=== PATIENT | female | born 1960 | race Caucasian/White ===

== ENCOUNTER 2017-09-09 11:40 | Day surgery (SDC) | payer OTHER ==
[2017-09-08 12:21] VITALS: BMI 31.6
[2017-09-09 12:20] LABS: INR 0.99 (0.82-1.09); PROTHROMBIN TIME (PATIENT) 11.2 SEC (9.98-11.88)
[2017-09-09 12:23] LABS: ACTIVATED PTT 29.2 SECONDS (26.9-34.4)
[2017-09-09] MEDS ORDERED: LIDOCAINE 1%/EPI 1:100000 (20 ML MULTI DOSE VIAL) ONE (13:06)
[2017-09-09] MEDS ORDERED: INDOCYANINE GREEN 25 MG/10 ML VIAL IVPUSH ONE (13:10)
[2017-09-09] MEDS ORDERED: ROCURONIUM BROMIDE 50 MG/5 ML VIAL ONE (13:54)
[2017-09-09] MEDS ORDERED: fentaNYL CITRATE 250 MCG/5 ML VIAL ONE (13:54)
[2017-09-09] MEDS ORDERED: MIDAZOLAM HCL 2 MG/2 ML SINGLE DOSE VIAL ONE (13:54)
[2017-09-09] MEDS ORDERED: PROPOFOL 20 ML ONE (13:54)
--- NOTE | 2017-09-09 14:26 | HP ---
History & Physical Update - History History: No Change - Physical Physical: No Change - Assessment Assessment: No Change - Plan Plan: No Change
[2017-09-09] MEDS ORDERED: CLINDAMYCIN 600 MG PREMIX BAG IVPB ONE (14:40)
[2017-09-09] MEDS ORDERED: CLINDAMYCIN PHOSPHATE 600 MG/4 ML VIAL ONE (14:48)
[2017-09-09] MEDS ORDERED: BUPIVACAINE HCL/PF 0.5% (5MG/ML) 10 ML VIAL ONE (15:14)
[2017-09-09] MEDS ORDERED: BUPIVACAINE HCL/PF 0.5% (5MG/ML) 10 ML VIAL IJ ONE (15:34)
[2017-09-09] MEDS ORDERED: DEXAMETHASONE SOD PHOSPHATE 4 MG/1 ML VIAL ONE (15:52)
[2017-09-09] MEDS ORDERED: NEOSTIGMINE METHYLSULFATE 0.5 MG/ML - 10 ML MDV ONE (15:52)
[2017-09-09] MEDS ORDERED: GLYCOPYRROLATE 0.2 MG/1 ML VIAL ONE (15:52)
[2017-09-09] MEDS ORDERED: ONDANSETRON 4 MG/2 ML VIAL IVPUSH PRN (16:06)
[2017-09-09] MEDS ORDERED: KETOROLAC TROMETHAMINE 30 MG/1 ML VIAL ONE (16:11)
[2017-09-09] MEDS ORDERED: METOCLOPRAMIDE HCL INJECTION 10 MG/2 ML VIAL IVPUSH PRN (16:37)
[2017-09-09] MEDS ORDERED: ONDANSETRON 4 MG/2 ML VIAL IVPB PRN (16:37)
[2017-09-09] MEDS ORDERED: morphine SULFATE 4 MG/ML VIAL IVPUSH PRN (16:37)
[2017-09-09] MEDS ORDERED: diphenhydrAMINE HCL 25 MG CAPSULE (FP) PO PRN (16:37)
[2017-09-09] MEDS ORDERED: ACETAMINOPHEN INJECTION 100 ML IVPB ONE (16:38)
[2017-09-09] MEDS ORDERED: oxyCODONE HCL 5 MG TABLET PO PRN (16:42)
[2017-09-09] MEDS ORDERED: ACETAMINOPHEN 325 MG TABLET (FP) PO SCH (16:45)
[2017-09-09] MEDS ORDERED: ACETAMINOPHEN 1000 MG/100 ML VIAL (NON FORMULARY) IVPB ONE ×2 (16:55→17:15)
[2017-09-09] MEDS: KETOROLAC TROMETHAMINE 30 MG/1 ML VIAL IVPUSH SCH ×2 (18:56→21:47)
[2017-09-09] MEDS: ACETAMINOPHEN 500 MG TABLET (FP) PO SCH (19:30)
[2017-09-10] MEDS: ACETAMINOPHEN 500 MG TABLET (FP) PO SCH ×3 (00:40→12:18)
[2017-09-10] MEDS: KETOROLAC TROMETHAMINE 30 MG/1 ML VIAL IVPUSH SCH ×3 (03:00→15:31)
--- NOTE | 2017-09-10 07:03 | OP ---
DATE OF OPERATION: 09/09/2017 PREOPERATIVE DIAGNOSES: 1. Abnormal Papanicolaou smears, unable to perform colposcopy due to anatomy. 2. 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 3. Family history of uterine cancer. POSTOPERATIVE DIAGNOSES: 1. Abnormal Papanicolaou smears, unable to perform colposcopy due to anatomy. 2. 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 3. Family history of uterine cancer. PROCEDURE: Robotic-assisted total hysterectomy, bilateral salpingo-oophorectomy and lysis of adhesions. SURGEON: Fernanda Gardner MD SALES REPRESENTATIVE ADVERTISING: Parisa Beth MD ANESTHESIA: General endotracheal and local. ESTIMATED BLOOD LOSS: 25 mL. COMPLICATIONS: None. INDICATIONS: This is a 57-year-old 2, para 2 with 2 prior sections who had atypical squamous cells - cannot rule out high-grade on Pap smear. High-risk HPV was positive. She was unable to have an office colposcopy due to the very high and anterior cervix. The colposcopy would also be likely very difficult as well in the operating room. We had discussed options with the patient. She also had a mother who had uterine cancer and given these concerns we elected to proceed with a hysterectomy. Risks, benefits, indications, alternatives were discussed with the patient. All questions were answered. Informed consent was signed. FINDINGS: Vagina: No lesions. Cervix: Small, no gross lesions, very anterior and high. The vaginal exam was very difficult and limited and we were only able to visualize the cervix after blindly grasping for it with the tenaculum. The intraabdominal findings: Normal upper abdominal exam, normal liver edge and diaphragm. There were omental adhesions to the anterior abdominal wall. The uterus was approximately 6 weeks' size. Bilateral tubes and ovaries appeared normal. The uterus had extensive scarring anteriorly to the bladder flap as well as to the anterior abdominal wall. There were no other intraabdominal abnormalities. Appendix appeared normal. PROCEDURE: The patient was taken to the operating room, placed in the dorsal supine position. General endotracheal anesthesia was obtained without difficulty. She was placed in the dorsal lithotomy position in Duncan stirrups and prepped and draped in the normal sterile fashion. A Yanez catheter was placed in the bladder. A speculum was placed in the vagina. We were unable to visualize the cervix. Therefore, the speculum was removed and using a tenaculum and digitally feeling for the cervix the cervix was grasped and brought down into view. The speculum was then placed. Figure-of-8 stitch of 0 Vicryl was placed in the cervix and the cervix was gently dilated. This was very difficult given the anterior and high cervix. A Kokoare uterine manipulator was then placed and the tenaculum and speculum were then removed. Attention was turned to the patient's abdomen. Marcaine 0.25%, 5 mL, was injected into the umbilicus and an 8-mm incision was made with a scalpel. While tenting the anterior abdominal wall, a Veress needle was inserted intraabdominally and the abdomen was insufflated with CO2 gas. An 8-mm trocar was then placed and intraabdominal placement was confirmed by direct visualization with the laparoscope. Additional 8-mm trocar was placed in the left mid quadrant and right mid quadrant and a 5-mm AirSeal port was placed in the left lower quadrant. All trocars were placed under direct visualization after injecting 0.25% Marcaine. A thorough exam of the abdomen and pelvis revealed the above-noted findings. The da Betsey robot was then docked without difficulty. The omental adhesions were lysed from the anterior abdominal wall using monopolar scissors. The left adnexa was elevated. Left ureter was noted to be well away from the field of dissection. The left infundibulopelvic ligament was clamped, cauterized and transected. This was carried through the broad ligament and the round ligament on the left. The right adnexa was elevated. The right ureter was noted to be well away from the field of dissection. The right infundibulopelvic ligament was clamped, cauterized and transected. This was carried through the broad ligament and the round ligament and the vesicouterine peritoneum anteriorly. Extensive dissection was performed to free the uterine fundus from the anterior abdominal wall and to create the bladder flap which was markedly scarred. Uterine arteries bilaterally were skeletonized. They were clamped, cauterized and transected. The cardinal ligaments were serially clamped, cauterized and transected. The uterosacral ligaments were clamped, cauterized and transected. A vaginotomy incision was made circumferentially around the cervix. Uterus, cervix, ovaries and tubes were passed through the vagina without difficulty and the vaginal cuff was closed in a running continuous fashion using 2-0 V-Loc suture. The pelvis was thoroughly irrigated with saline and noted to be hemostatic. Again, the bladder was dissected off the anterior vaginal cuff. Excellent hemostasis was seen. All instruments were removed from the patient's abdomen. The da Betsey robot was then undocked. We looked again intraabdominally and excellent hemostasis was seen. All trocars were removed. The skin was closed with 4-0 Monocryl and Dermabond was applied. The patient was extubated and transferred in stable condition to the PACU. Edson [id number]
[2017-09-10 07:46] LABS: HEMATOCRIT 33.5 % (32.4-45.2); HEMOGLOBIN 11.3 GM/dL (10.7-15.3); MCH 29.8 pg (25.7-33.7); MCHC 33.7 g/dl (32.0-36.0); MEAN CELL VOLUME 88.3 fl (80-96); MEAN PLT VOLUME 10.3 fl (7.5-11.1); PLATELET COUNT 238 K/MM3 (134-434); RBC 3.79 M/mm3 (3.60-5.2); RDW 13.5 % (11.6-15.6); WHITE BLOOD COUNT 6.5 K/mm3 (4.0-10.0)
[2017-09-10 08:35] LABS: ANION GAP 6 (8-16); BLOOD UREA NITROGEN 12 mg/dL (7-18); CALCIUM 7.9 mg/dL (8.5-10.1); CHLORIDE 106 mmol/L (98-107); CO2 29 mmol/L (21-32); CREATININE 0.8 mg/dL (0.55-1.02); GLUCOSE,RANDOM 81 mg/dL (74-106); POTASSIUM 4.2 mmol/L (3.5-5.1); SODIUM 141 mmol/L (136-145)
[2017-09-10] MEDS ORDERED: ENOXAPARIN NA (PORCINE) 40 MG/0.4 ML DISP.SYRIN SQ SCH (10:00)
--- NOTE | 2017-09-10 12:25 | PN ---
Progress Note (short form) - Note Progress Note: POD#1 Pt without complaints, she is oob/ambulating, lucio removed and waiting to void. She is tolerating a diet and had a BM. Vital Signs Period Temp Pulse Resp BP Sys/Newman Pulse Ox Last 24 Hr 97.8 F-98.4 F 64-78 16-20 95-125/54-80 99-100 GEN: appears comfortable Abd: soft, non-distended, inc tenderness, Inc c/d/i without ecchymosis LE: no calf tenderness or swelling b/l CBC, BMP 09/10/17 06:40 09/10/17 06:40 A/P: 57 yo female s/p robotic assisted hysterectomy with BSO/lysis of adhesions continue diet oral pain medications as tolerated continue oob/ambulate D/w Dr. Gardner, plan for discharge to home today this afternoon by Dr. Ash
[2017-09-10 14:46] VITALS: BP 95/55; PULSE 78; TEMP 98.9
--- NOTE | 2017-09-10 16:02 | PN ---
Progress Note (SOAP) - Subjective History of Present Illness: Patient without acute complaints. Tolerating clears without nausea or vomiting Ambulating, voiding and passing gas Denies fevers or chills. Denies chest pain, shortness of breath Pain well controlled with oral medication. - Current Medications Current Medications: Active Medications Acetaminophen (Tylenol -) 1,000 mg PO Q6HPO [facility] Last Admin: 09/10/17 12:18 Dose: 1,000 mg Diphenhydramine HCl (Benadryl Injection -) 25 mg IVPB Q6H PRN PRN Reason: FOR ITCHING Diphenhydramine HCl (Benadryl -) 25 mg PO Q6H PRN PRN Reason: FOR ITCHING Enoxaparin Sodium (Lovenox -) 40 mg SQ DAILY [facility] Last Admin: 09/10/17 09:23 Dose: 40 mg Ketorolac Tromethamine (Toradol Injection -) 30 mg IVPUSH Q6H-IV [facility] Stop: 09/14/17 16:59 Last Admin: 09/10/17 15:31 Dose: 30 mg Metoclopramide HCl (Reglan Injection -) 10 mg IVPUSH Q6H PRN PRN Reason: NAUSEA AND/OR VOMITING Last Admin: 09/09/17 19:54 Dose: 10 mg Morphine Sulfate (Morphine Sulfate) 2 mg IVPUSH Q3H PRN PRN Reason: PAIN LEVEL 7 - 10 Ondansetron HCl (Zofran Injection) 4 mg IVPUSH Q6H PRN PRN Reason: NAUSEA AND/OR VOMITING Ondansetron HCl (Zofran Injection) 8 mg IVPB Q8H PRN PRN Reason: NAUSEA Oxycodone HCl (Roxicodone -) 5 mg PO Q4H PRN PRN Reason: PAIN LEVEL 4 - 6 Last Admin: 09/09/17 19:47 Dose: 5 mg - Objective Vital Signs: Vital Signs Temperature 98.9 F 09/10/17 14:45 Pulse Rate 78 09/10/17 14:45 Respiratory Rate 20 09/10/17 10:00 Blood Pressure 95/55 09/10/17 14:45 O2 Sat by Pulse Oximetry (%) 99 09/09/17 20:29 Constitutional: Yes: Well Nourished, No Distress, Calm Cardiovascular: Yes: Regular Rate and Rhythm Respiratory: Yes: Regular, CTA Bilaterally Gastrointestinal: Yes: Normal Bowel Sounds, Soft, Other (incision - clean / intact) Peripheral Pulses WNL: No Edema: No Wound/Incision: Yes: Clean/Dry, Well Approximated Psychiatric: Yes: Alert, Oriented Labs Lab Results: CBC, BMP 09/10/17 06:40 09/10/17 06:40 Assessment/Plan 57 yo POD #1 s/p robotic-assisted total laparoscopic hysterectomy, bilateral salpingectomy 1. Patient stable for discharge home today. 2. Patient encouraged to contact MD for: - Severe pain not controlled by oral pain medication - Fevers or chills - Nausea or vomiting, intolerance of oral intake - Incision redness, tenderness or discharge 3. Patient to follow up in office in [address] Gardner
--- NOTE | 2017-09-10 16:03 | DS ---
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 Vital Signs: Vital Signs Temperature 98.9 F 09/10/17 14:45 Pulse Rate 78 09/10/17 14:45 Respiratory Rate 20 09/10/17 10:00 Blood Pressure 95/55 09/10/17 14:45 O2 Sat by Pulse Oximetry (%) 99 09/09/17 20:29 Labs: CBC, BMP 09/10/17 06:40 09/10/17 06:40 Discharge Summary Reason For Visit: DYSPLASIA OF CERVIX, ABNORMAL UTERINE BLEEDING Procedures: Principal: robotic-assisted total laparoscopic hysterectomy, bilateral salpingectomy Hospital Course: Patient fulfilled all criteria for discharge home on POD # 1 Condition: Good - Instructions Disposition: HOME - Home Medications Comprehensive Discharge Medication List: Ambulatory Orders No Home Medications 0 dose .ROUTE UTDICT 04/21/13
--- NOTE | 2017-09-12 10:54 | PATH ---
Surgical Pathology Report Patient Name: CORINNA PABON [facility]. Rec. #: [id number] /Age/Gender: 1960 (Age: 57) / F Account: [id number] Location: AMBULATORY SURG Taken: 09/09/2017 Received: 09/10/2017 Reported: 09/12/2017 Physicians: Fernanda Gardner MD Specimen(s) Received UTERUS AND CERVIX BILATERAL TUBES AND OVARIES Clinical History Dysplasia of cervix, abnormal uterine bleeding Final Diagnosis UTERUS AND CERVIX WITH BILATERAL FALLOPIAN TUBES AND OVARIES, HYSTERECTOMY AND BILATERAL SALPINGO-OOPHORECTOMY: UTERUS AND CERVIX, 52 GRAMS, WITH LEIOMYOMATA, LEIOMYOMA WITH FATTY DEGENERATION (LIPOLEIOMA), FOCAL SEROSAL ENDOMETRIOSIS AND ADENOMYOSIS, INACTIVE ENDOMETRIUM, AND CERVIX WITH CHRONIC INFLAMMATION. NO DYSPLASIA IDENTIFIED. BENIGN BILATERAL FALLOPIAN TUBES AND OVARIES PRESENT. Electronically Signed Ramos Jacobs M.D. Gross Description Received in formalin labelled "uterus, cervix, bilateral tubes and ovaries" is a uterus and cervix with attached bilateral fallopian tubes and ovaries. Without the attached fallopian tubes and ovaries the uterus and cervix weighs 52 grams and measures 8.5 x 4.3 x 3.2 cm. Anterior uterine serosa has abundant adherent brown tissue, and whorled galvez subserosal nodules measuring up to 1.0 cm in greatest dimension are noted. The cervix measures up to 2 cm in diameter and has a 0.3 cm os. The endocervical canal is 3.7 cm long and is lined by doe mucosa. No cervical mass is identified. The endometrial cavity measures 2.3 x 1.2 cm and is distorted by a lobulated 1.5 cm greatest dimension submucosal and intramural nodule in the fundus of the uterus. The myometrium is up to 1.5 cm in thickness. The endometrium is up to 0.3 cm thick, with a smooth doe surface. The right fallopian tube is 5.2 cm long x 0.4 cm in diameter and contains a fimbriated end. The right ovary measures 3.5 x 1.2 x 1.0 cm, and has a lobular doe surface and a doe interior with a 0.9 cm greatest dimension clear fluid filled cyst. The left fallopian tube measures 5.2 cm long x 0.4 cm in diameter and contains a fimbriated end. The left ovary measures 3.0 x 1.1 x 0.9 cm, and has a lobulated doe surface with a doe yellow interior. There is a multiloculated 0.8 cm in greatest dimension clear fluid filled cyst present. Certified Recreational Therapist sections are submitted as follows: 1 and 2-anterior cervix; 3 through 5-posterior cervix; 6-anterior and posterior endocervix; 7 and 8-anterior endomyometrium and serosa; 9 and 10-nodule from fundus of uterus 11 and 12-posterior endomyometrium and serosa; 13-right fallopian tube and ovary; 14-left fallopian tube and ovary; 15-myometrial nodules. [facility]/09/10/2017 [facility]/09/10/2017
== END 2017-09-10 16:28 | disposition home or self-care (01) ==
LOC: JASU-SURG 11:40 → JASUSAT 11:40 → J6S 18:20 → JASUSAT 09-10 16:28
PROVIDERS: ATTEND Obstetrics & Gynecology Gynecologic Oncology
PROC: 0UT2FZZ Resection of Bilateral Ovaries, Via Natural or Artificial Opening With Percutaneous Endoscopic Assistance (ICD-10-PCS; 2017-09-09)
PROC: 0UT7FZZ Resection of Bilateral Fallopian Tubes, Via Natural or Artificial Opening With Percutaneous Endoscopic Assistance (ICD-10-PCS; 2017-09-09)
PROC: 8E0W4CZ Robotic Assisted Procedure of Trunk Region, Percutaneous Endoscopic Approach (ICD-10-PCS; 2017-09-09)
PROC: 0UT9FZZ Resection of Uterus, Via Natural or Artificial Opening With Percutaneous Endoscopic Assistance (ICD-10-PCS; principal; 2017-09-09 13:30)
DX: N80.0 Endometriosis of uterus (principal); N72 Inflammatory disease of cervix uteri; D25.9 Leiomyoma of uterus, unspecified; Z80.8 Family history of malignant neoplasm of other organs or systems; R87.810 Cervical high risk human papillomavirus (HPV) DNA test positive
CPT/HCPCS: 58552; S2900; 36415; 80048; 85027; 85610; 85730; 86850; 86900; 86901; 88307-TC; 94760; J0131

== ENCOUNTER 2019-04-03 14:17 | Emergency (ER) | payer OTHER ==
[2019-04-03 14:47] VITALS: TEMP 98; BMI 31.2
[2019-04-03 15:34] LABS: BASO % 0.7 % (0-2.0); EOS % 1.9 % (0-4.5); HEMATOCRIT 42.8 % (32.4-45.2); HEMOGLOBIN 14.3 GM/dl (10.7-15.3); LYMPH % 33.8 % (8-40); MCH 29.9 pg (25.7-33.7); MCHC 33.5 g/dl (32.0-36.0); MEAN CELL VOLUME 89.2 fl (80-96); MEAN PLT VOLUME 9.7 fl (7.5-11.1); MONO % 5.8 % (3.8-10.2); NEUT % 57.8 % (42.8-82.8); PLATELET COUNT 322 K/MM3 (134-434); RBC 4.79 M/mm3 (3.60-5.2); RDW 12.7 % (11.6-15.6); WHITE BLOOD COUNT 5.5 K/mm3 (4.0-10.8)
[2019-04-03 16:02] LABS: ALBUMIN 4.3 g/dl (3.4-5.0); BILIRUBIN,TOTAL 0.4 mg/dl (0.2-1); CALCIUM 8.8 mg/dl (8.5-10); CREATININE 0.9 mg/dl (0.55-1.3); POTASSIUM 3.8 mmol/L (3.5-5.1); TOT PROT 7.6 g/dl (6.4-8.2)
--- NOTE | 2019-04-03 16:33 | PDOC ---
Documentation entered by Jhoana Nichols SCRIBE, acting as scribe for Jasmeet Pruitt MD. Jasmeet Pruitt MD: This documentation has been prepared by the chrisibeMagdalena Adrianna, SCRIBE, under my direction and personally reviewed by me in its entirety. I confirm that the documentation accurately reflects all work, treatment, procedures, and medical decision making performed by me. History of Present Illness - General Chief Complaint: Chest Pain Stated Complaint: CHEST PAIN AND LEFT ARM NUMBNESS Time Seen by Provider: 04/03/19 14:23 - History of Present Illness Initial Comments: The patient is a 58 year old female, with no significant PMH, who presents to the ED for evaluation of chest heaviness for 20 minutes. Patient notes she has had intermittent episodes of substernal chest heaviness over the past 2 weeks, which can range from a few minutes to a half hour and then self-resolve. She reports her symptoms are typically worse at night when lying on her side, and is alleviated when lying on her back. This morning, the patient had one episode of dizziness that lasted for approximately 10 seconds and self-resolved. Upon leaving work this afternoon, she felt sudden onset substernal chest heaviness, LUE pain, and numbness of the left hand. She was concerned about the LUE pain and left hand numbness, so she came to the ED for further evaluation. She denies any radiation of pain to her jaw or back. Patient notes the chest heaviness has resolved in the ED, but notes the numbness of the LUE remains. She denies any cardiac history, risk factors, or any pertinent family history. Patient does note that 4 years ago she had an episode of chest pain, that was different in nature to todays symptoms. She was evaluated in an ED at that time , and told it was a result of anxiety (work-up was negative for any acute chest pathology). Although today's symptoms do not feel the same, she does believe that it could be related. Nausea, vomit, headache, diaphoresis, or dyspnea. Allergies: Penicillins, codeine Surgical History: Hysterectomy Social History: Denies EtOH, tobacco, or illicit drug use PCP: NOS Past History - Past Medical History Allergies/Adverse Reactions: Allergies Allergy/AdvReac Type Severity Reaction Status Date / Time Penicillins Allergy Severe Hives Verified 04/03/19 14:28 codeine AdvReac Severe Vomiting Verified 04/03/19 14:28 Home Medications: Ambulatory Orders No Home Medications 0 dose .ROUTE UTDICT 04/21/13 Anemia: No Asthma: No Cancer: No Cardiac Disorders: No CVA: No COPD: No CHF: No Dementia: No Diabetes: No GI Disorders: No Disorders: No HTN: No Hypercholesterolemia: No Liver Disease: No Seizures: No Thyroid Disease: No Other medical history: pt denies - Surgical History Abdominal Surgery: No Appendectomy: No Cardiac Surgery: No Cholecystectomy: No Lung Surgery: No Neurologic Surgery: No Orthopedic Surgery: No - Psycho Social/Smoking Cessation Hx Smoking Status: No Smoking History: Never smoked Number of Cigarettes Smoked Daily: 0 Hx Alcohol Use: No Drug/Substance Use Hx: No Substance Use Type: None Hx Substance Use Treatment: No Review of Systems - Review of Systems Comments:: CONSTITUTIONAL: Absent: Fever, Chills, Diaphoresis, Generalized Weakness, Malaise, Loss of Appetite HEENT: Absent: Rhinorrhea, Nasal Congestion, Throat Pain, Throat Swelling, Difficulty Swallowing, Mouth Swelling, Ear Pain, Eye Pain, Visual Changes CARDIOVASCULAR: +Substernal chest heaviness. Absent: Syncope, Palpitations, Irregular Heart Rate, Lightheadedness, Peripheral Edema RESPIRATORY: Absent: Cough, Shortness of Breath, SOB with Exertion, Orthopnea, Wheezing, Stridor, Hemoptysis GASTROINTESTINAL: Absent: Abdominal pain, Abdominal Distension, Nausea, Vomiting, Diarrhea, Constipation, Melena, Hematochezia GENITOURINARY: Absent: Dysuria, Frequency, Urgency, Hesitancy, Flank Pain, Genital Pain MUSCULOSKELETAL: +LUE pain. Absent: Joint Swelling, Back pain, Neck Pain SKIN: Absent: Rash, Itching, Pallor HEMEATOLOGIC/IMMUNOLOGIC: Absent: Easy Bleeding, Easy Bruising, Lymphadenopathy, Frequent infections ENDOCRINE: Absent: Unexplained Weight Gain, Unexplained Weight Loss, Heat Intolerance, Cold Intolerance NEUROLOGIC: +Left hand numbness. +One episode of dizziness this morning for 10 seconds. Absent: Headache, Focal Weakness, Lightheadedness, Unsteady Gait, Seizure, Mental Status Changes, Incontinence PSYCHIATRIC: Absent: Anxiety, Depression *Physical Exam - Vital Signs Last Vital Signs Temp Pulse Resp BP Pulse Ox 98 F 67 18 132/66 100 04/03/19 14:18 04/03/19 14:18 04/03/19 14:18 04/03/19 14:18 04/03/19 14:18 - Physical Exam Comments: 04/03/19 16:26 GENERAL: The patient is awake, alert, and fully oriented, in no acute distress. HEAD: Normal with no signs of trauma. EYES: Pupils equal, round and reactive to light, extraocular movements intact, sclera anicteric, conjunctiva clear. ENT: Ears normal, nares patent, oropharynx clear without exudates. Moist mucous membranes. NECK: Normal range of motion, supple without lymphadenopathy, JVD, or masses. LUNGS: Breath sounds equal, clear to auscultation bilaterally. No wheezes, and no crackles. No chest wall tenderness. HEART: Regular rate and rhythm, normal S1 and S2 without murmur, rub or gallop. ABDOMEN: Soft, nontender, normoactive bowel sounds. No guarding, no rebound. No masses. EXTREMITIES: Normal range of motion, no edema. No clubbing or cyanosis. No cords, erythema, or tenderness. Normal pulses, normal perfusion. NEUROLOGICAL: Cranial nerves II through XII grossly intact. Normal speech, normal gait. Strength and sensation is normal in the extremities. PSYCH: Normal mood, normal affect. SKIN: Warm, Dry, normal turgor, no rashes or lesions noted. Heart Score/ECG Review - History History: Slightly suspicious - Electrocardiogram EKG: Normal - Age Age: 45-65 - Risk Factors Based on the list above the patient has:: No risk factors known - Troponin Troponin: </= normal limit - Score Heart Score - Total: 1 - ECG Impressions Comment:: 04/03/19 16:27 Twelve-lead EKG shows normal sinus rhythm at a rate of 69. The axis is normal. The intervals are normal. There are no acute ST elevations or depressions. Impression: Normal twelve-lead EKG ED Treatment Course - LABORATORY CBC & Chemistry Diagram: 04/03/19 12:25 04/03/19 15:25 - ADDITIONAL ORDERS Additional order review: Laboratory Results 04/03/19 04/03/19 15:25 15:25 Sodium 135 L Potassium 3.8 Chloride 101 Carbon Dioxide 24 Anion Gap 10 BUN 15.0 Creatinine 0.9 Est GFR (CKD-EPI)AfAm 82.26 Est GFR (CKD-EPI)NonAf 70.98 Random Glucose 87 Calcium 8.8 Total Bilirubin 0.4 AST 22 ALT 13 Alkaline Phosphatase 75 Troponin I < 0.03 Total Protein 7.6 Albumin 4.3 04/03/19 12:25 RBC 4.79 MCV 89.2 MCHC 33.5 RDW 12.7 MPV 9.7 Neutrophils % 57.8 Lymphocytes % 33.8 Monocytes % 5.8 Eosinophils % 1.9 Basophils % 0.7 - RADIOLOGY Radiology Studies Ordered: Category Date Time Status CHEST PA & LAT [RAD] Stat Radiology 04/03/19 15:11 Completed Radiograph Interpretation: EXAM#: TYPE/EXAM: RESULT: [id number] RAD/CHEST PA LAT 2 view chest Chest pain Impression: No infiltrate or edema in the lungs, no suspicious findings. Reported By: Herbie Erazo MD 04/03/19 15:50 Medical Decision Making - Medical Decision Making 04/03/19 16:27 Laboratory Results - last 24 hr 04/03/19 04/03/19 04/03/19 12:25 15:25 15:25 WBC 5.5 RBC 4.79 Hgb 14.3 Hct 42.8 MCV 89.2 MCH 29.9 MCHC 33.5 RDW 12.7 Plt Count 322 MPV 9.7 Absolute Neuts (auto) 3.2 Neutrophils % 57.8 Lymphocytes % 33.8 Monocytes % 5.8 Eosinophils % 1.9 Basophils % 0.7 Sodium 135 L Potassium 3.8 Chloride 101 Carbon Dioxide 24 Anion Gap 10 BUN 15.0 Creatinine 0.9 Est GFR (CKD-EPI)AfAm 82.26 Est GFR (CKD-EPI)NonAf 70.98 Random Glucose 87 Calcium 8.8 Total Bilirubin 0.4 AST 22 ALT 13 Alkaline Phosphatase 75 Troponin I < 0.03 Total Protein 7.6 Albumin 4.3 Patient is a 58-year-old female with no cardiac risk factors. She is a non- smoker, never smoked, no family history of heart disease, and no history of hypertension, diabetes, or hyperlipidemia. Patient presents with 2 weeks of atypical chest pain. The chest pain comes sometimes with position in bed at night, sometimes during the day, often brief in duration but sometimes lasts a bit longer. Her symptoms are quite atypical, and risk factors are absent, she has a heart score of 1 given her negative troponin, giving her a low risk for Mace. Physical examination was unremarkable. Impression: Atypical chest pain, negative ED work-up with normal EKG and troponin. Low risk profile on heart score gives her approximately 1% chance of an acute coronary syndrome. Plan: Patient advised, will follow up with primary care physician. Furthermore , she will return to the ED for any serious or progressive symptoms. The scribe's documentation has been prepared under my direction and personally reviewed by me in its entirety. I have confirmed that the note above accurately reflects all work, treatment, procedures, and medical decision- making performed by me. Discharge - Discharge Information Problems reviewed: Yes Clinical Impression/Diagnosis: Atypical chest pain Condition: Stable Disposition: HOME - Admission No - Follow up/Referral - Patient Discharge Instructions Patient Printed Discharge Instructions: DI for Atypical Chest Pain Additional Instructions: You were evaluated today for chest pain and left arm symptoms. The cardiac evaluation is all normal. Your heart and lung examination was normal, the EKG is normal, and the heart enzyme testing in the laboratory is also normal. The chest x-ray also demonstrates normal heart and lungs. The chest discomfort does not appear to be cardiac in nature. You are advised to follow-up with your primary care physician, call on Friday to schedule a follow-up appointment. Bring the discharge papers with your EKG and lab results to your follow-up appointment. If you should develop severe or progressive symptoms, return immediately to the emergency department. - Post Discharge Activity
[2019-04-03 16:46] VITALS: BP 124/64; PULSE 64
--- NOTE | 2019-04-04 10:36 | EKG ---
Test Reason : Blood Pressure : / mmHG Vent. Rate : 069 BPM Atrial Rate : 069 BPM P-R Int : 152 ms QRS Dur : 088 ms QT Int : 438 ms P-R-T Axes : 037 046 021 degrees QTc Int : 469 ms NORMAL SINUS RHYTHM NORMAL ECG WHEN COMPARED WITH ECG OF 10-MAY-1999 22:37, NO SIGNIFICANT CHANGE WAS FOUND Confirmed by MD DREA, KATTY ([id number]) on 04/04/2019 10:36:22 AM Referred By: JUAN ANTONIO AVILA Confirmed By:KATTY SHEPARD MD
== END 2019-04-03 16:44 | disposition home or self-care (01) ==
LOC: FER 14:17
DX: R07.89 Other chest pain (principal); Z88.0 Allergy status to penicillin; Z88.6 Allergy status to analgesic agent
CPT/HCPCS: 36415; 71046-TC-FY; 80053; 84484; 85025; 93005; 99283-25

== ENCOUNTER 2021-02-23 17:11 | Emergency (ER) | payer OTHER ==
[2021-02-23 17:47] VITALS: BP 112/76; PULSE 94; TEMP 99.1; BMI 32.5
== END 2021-02-23 19:10 | disposition home or self-care (01) ==
LOC: JER 17:11
DX: U07.1 COVID-19 (principal)
CPT/HCPCS: 99283-25